=== PATIENT | female | born 1960 ===

== ENCOUNTER 2019-02-16 11:15 | Inpatient (IN) | payer OTHER ==
[~2019-02-16] VITALS: Ht 162.6 cm; Wt 84.8 kg
[~2019-02-16 11:15] MED LIST: CIPROFLOXACIN750 MG PO; CLONAZEPAM1 MG PO; DOCUSATE SODIU100 MG PO; HYZAAR 100/25 T1 TAB PO; METHYLPRED4 MG/DOSE- PO; NEURONTIN800 MG PO; PERCOCET 5/3251 TAB PO; ULTRAM50 MG PO; VICOPROFEN PO
[2019-02-16] MEDS ORDERED: AVAPRO150 MG PO (12:04)
[2019-02-16] MEDS ORDERED: PROTONIX20 MG PO (12:05)
[2019-02-16] MEDS ORDERED: LEVOTHYROXINE25 MCG PO (12:06)
[2019-02-16] MEDS ORDERED: GABAPENTIN100 MG PO (12:06)
[2019-02-24] MEDS ORDERED: CLONAZEPAM0.5 MG PO (08:10)
== END 2019-02-24 10:32 | disposition home or self-care (01) | DRG 741 ==
LOC: O/R 11:15 → SURH 02-23 07:00 → O/R 02-23 07:50 → OB/GYN 02-23 07:50 → SURH 02-23 11:15 → OB/GYN 02-24 10:32
PROVIDERS: ADMIT Obstetrics & Gynecology Gynecologic Oncology
PROC: 0UT74ZZ Resection of Bilateral Fallopian Tubes, Percutaneous Endoscopic Approach (ICD-10-PCS; 2019-02-23)
PROC: 0UT24ZZ Resection of Bilateral Ovaries, Percutaneous Endoscopic Approach (ICD-10-PCS; 2019-02-23)
PROC: 07BC4ZX Excision of Pelvis Lymphatic, Percutaneous Endoscopic Approach, Diagnostic (ICD-10-PCS; 2019-02-23)
PROC: 0UT94ZZ Resection of Uterus, Percutaneous Endoscopic Approach (ICD-10-PCS; principal; 2019-02-23 07:00)
DX: C54.1 Malignant neoplasm of endometrium (principal); I10 Essential (primary) hypertension; E03.8 Other specified hypothyroidism